=== PATIENT | female | born 1995 | race Caucasian/White ===

== ENCOUNTER 2021-07-26 16:10 | Inpatient (IN) | payer OTHER ==
[~2021-07-26] VITALS: Ht 160 cm; Wt 52.2 kg
[2021-07-26 16:46] LABS: HEMOGLOBIN 14.1 gm/dl (12.3-15.3); WHITE BLOOD COUNT 6.2 K/UL (4.5-11.0)
[2021-07-26 17:12] LABS: BUN/CREATININE RATIO 14 (0-10)
[2021-07-27 04:41] LABS: BUN/CREATININE RATIO 9 (0-10)
[2021-07-27] MEDS ORDERED: METOPROLOL TART25 MG PO (16:25)
[2021-07-27] MEDS ORDERED: MELATONIN10 M2 PO (16:25)
[2021-07-27] MEDS ORDERED: IBUPROFEN800 MG PO (16:25)
[2021-07-27] MEDS ORDERED: ZOFRAN 4 MG TAB4 MG PO (16:26)
[2021-07-27] MEDS ORDERED: ROBAXIN 750 MG750 MG PO (16:26)
[2021-07-27] MEDS ORDERED: CATAPRES 0.1MG0.1 MG PO (16:27)
[2021-07-27] MEDS ORDERED: VISTARIL 50 MG50 MG PO (16:27)
[2021-07-27 16:39] LABS: BUN/CREATININE RATIO 5 (0-10)
[2021-07-28 16:29] LABS: HEMOGLOBIN 12.8 gm/dl (12.3-15.3); RED BLOOD COUNT 3.65 M/UL (4.00-5.10); WHITE BLOOD COUNT 6.2 K/UL (4.5-11.0)
[2021-07-28 17:05] LABS: BUN/CREATININE RATIO 7 (0-10)
[2021-07-29 01:52] LABS: HEMOGLOBIN 12.9 gm/dl (12.3-15.3); RED BLOOD COUNT 3.66 M/UL (4.00-5.10); WHITE BLOOD COUNT 6.7 K/UL (4.5-11.0)
[2021-07-29 02:44] LABS: BUN/CREATININE RATIO 16 (0-10)
--- NOTE | 2021-07-29 16:47 | NUR ---
STATES PT CAN GO TO MED SURG WITH TELE
--- NOTE | 2021-07-29 17:02 | NUR ---
REPORT GIVEN TO NIKHIL RN ON 5TH FLOOR
[2021-07-30 06:27] LABS: HEMOGLOBIN 12.5 gm/dl (12.3-15.3); RED BLOOD COUNT 3.63 M/UL (4.00-5.10); WHITE BLOOD COUNT 6.5 K/UL (4.5-11.0)
[2021-07-30 06:41] LABS: BUN/CREATININE RATIO 16 (0-10)
[2021-07-31 04:30] LABS: RED BLOOD COUNT 3.78 M/UL (4.00-5.10); WHITE BLOOD COUNT 7.1 K/UL (4.5-11.0)
[2021-07-31 04:53] LABS: BUN/CREATININE RATIO 16 (0-10)
[2021-07-31] MEDS ORDERED: TAB-A-VITE TA400 MC1 PO (17:39)
[2021-07-31] MEDS ORDERED: VITAMIN B-1100 M1 PO (17:39)
[2021-07-31] MEDS ORDERED: BUSPIRONE HCL5 MG PO (17:39)
[2021-07-31] MEDS ORDERED: K-TAB ER20 MEQ PO (17:42)
[2021-08-01 04:08] LABS: (LD) FRACTION 1 19 % (17-32); (LD) FRACTION 2 33 % (25-40); (LD) FRACTION 3 21 % (17-27); (LD) FRACTION 4 9 % (5-13); (LD) FRACTION 5 18 % (4-20); CK-BB 1 % (0); CK-MB 0 % (0-3); CK-MM 99 % (97-100); LDH 270 IU/L (119-226); MACRO TYPE 1 0 % (Not Observed); MACRO TYPE 2 0 % (Not Observed)
== END 2021-07-31 20:00 | DRG 897 ==
LOC: ER1 16:10 → CCU 17:57 → CDU 17:57 → M/S 17:57 → PROG CARE 17:57 → CCU 20:18 → PROG CARE 07-28 10:35 → M/S 07-29 17:55
PROVIDERS: Internal Medicine; Internal Medicine Critical Care Medicine; Internal Medicine Pulmonary Disease; Preventive Medicine Occupational Medicine; ADMIT Internal Medicine
PROC: B24BZZZ Ultrasonography of Heart with Aorta (ICD-10-PCS; principal; 2021-07-29)
DX: F10.139 Alcohol abuse with withdrawal, unspecified (principal); R44.3 Hallucinations, unspecified; E87.1 Hypo-osmolality and hyponatremia; E87.4 Mixed disorder of acid-base balance; Z20.822 Contact with and (suspected) exposure to COVID-19; K76.0 Fatty (change of) liver, not elsewhere classified; R45.1 Restlessness and agitation; F41.9 Anxiety disorder, unspecified; I10 Essential (primary) hypertension; F19.10 Other psychoactive substance abuse, uncomplicated; R74.01 Elevation of levels of liver transaminase levels; D69.6 Thrombocytopenia, unspecified; E83.42 Hypomagnesemia; F32.A Depression, unspecified; F17.210 Nicotine dependence, cigarettes, uncomplicated; E83.39 Other disorders of phosphorus metabolism; E87.6 Hypokalemia; R27.0 Ataxia, unspecified; R25.1 Tremor, unspecified
CPT/HCPCS: ECHO; 36415; 51702; 70450; 71045; 76705; 80048; 80053; 80307; 81001; 82009; 82140; 82550; 82552; 82553; 82607; 82803; 83605; 83615; 83625; 83690; 83735; 83880; 84100; 84132; 84439; 84443; 84484; 84703; 85025; 85027; 85379; 85384; 85610; 85652; 85730; 86140; 87040; 93005; 93306; 96374; 96375; 99285; G0480; J1650; J2060; J2250; J3360; J3411; J3475; J3480; J7030; Q0177